=== PATIENT | male | born 1995 | race Caucasian/White ===

== ENCOUNTER 2019-12-30 13:22 | Emergency (ER) | payer SELFPAY ==
[2019-12-30 13:22] VITALS: BP 109/66; PULSE 90; RESP 16; TEMP 37.2; O2SAT 96
[2019-12-30 13:45] VITALS: BP 116/78; PULSE 86; RESP 16; TEMP 36.5; O2SAT 98; BMI 29.5
[2019-12-30 14:02] VITALS: BP 109/66; PULSE 89; RESP 16; TEMP 37.2; O2SAT 96
--- NOTE | 2019-12-30 14:02 | W.ED.GENADLT ---
HPI - General Adult General: Chief complaint: General Medical Stated complaint: COVID SYMPTOMS Time Seen by Provider: 12/30/19 13:51 History of Present Illness: HPI narrative: She has had sinus drainage for the last week or 2-works at [employer] missed work would like to have a note for work said he has had slight cough been taking [id number]-atmrqbn cold medicines denies any sore throat positive sputum production has had some diarrhea denies loss of taste or smell has not been exposed any COVID MD complaint: URI Onset (ago): day(s) Associated symptoms: Deny chest pain, dyspnea, headache(s), nausea, rash or vomiting Review of Systems Const: Denies: fever(s), chills or body aches Eyes: Denies: change in vision or blurry vision ENMT: Reports: nasal congestion; Denies: throat pain Card: Denies: chest pain or dyspnea on exertion Resp: Reports: non-productive cough; Denies: dyspnea or productive cough GI: Denies: abdominal pain, nausea or vomiting : Denies: difficulty urinating Musc: Denies: extremity pain Skin/Breast: Denies: rash Neuro: Denies: headache(s) Psych: Denies: anxiety or depression Thad/Lymph: Denies: easy bruising PFSH ED PFSH: Social History (Updated 12/30/19 @ 13:50 by Jason Zhou RN) Smoking and tobacco status: current every day smoker Alcohol intake: current Alcohol intake frequency: 3 or more drinks per day Alcohol type: beer Substance/Drug Use: current Substance/Drug use type: Marijuana Physical Exam Const: COMMON NORMALS: no acute distress, average body habitus and patient oriented x3 HENMT: COMMON NORMALS: normocephalic HEAD & SCALP: normal to inspection and normocephalic FACE & SINUS: sinus tenderness frontal NOSE: Nasal discharge present Eye: COMMON NORMALS: conjunctivae normal GENERAL EYE: appearance normal, both eyes and all related structures CONJUNCTIVA: Yes conjunctivae normal Neck/C-Spine: COMMON NORMALS: no JVD Chest: COMMONS NORMALS: normal inspection of the chest Resp: COMMON NORMALS: normal respiratory effort and clear to auscultation bilaterally AUSCULTATION: clear to auscultation bilaterally Cardio: COMMON NORMALS: no JVD, regular rate and regular rhythm RATE: regular rate RHYTHM: regular rhythm GI: COMMON NORMALS: Normal to inspection, nondistended, normoactive bowel sounds present Extremity: COMMON NORMALS: normal to inspection and full ROM Neuro: COMMON NORMALS: patient oriented x3 Course Vital Signs: Vital signs: Vital Signs Temperature 98.9 F 12/30/19 14:16 Pulse Rate 16 L 12/30/19 14:16 Respiratory Rate 16 12/30/19 14:02 Blood Pressure 106/68 12/30/19 14:16 Pulse Oximetry 96 12/30/19 14:16 Discharge Plan Discharge Patient Disposition: Home Clinical Impression: URI (upper respiratory infection) Qualifiers: URI type: unspecified URI Qualified Code(s): J06.9 - Acute upper respiratory infection, unspecified Condition: Stable Prescriptions: New Zithromax Z-Rob 250 mg tablet See Rx Instructions .ROUTE .COMPLEX Qty: 6 RF: 0 Discharge Orders: Discharge Order (Routine); Ordered 12/30/19 Ordered By: Isaiah Garcia Referrals: Lake Melendez MD [Family Provider] - Discharge Diet: Usual diet Discharge Activity: Increase activity as tolerated Patient Instructions: Upper Respiratory Infection (ED) Activity Restrictions/Additional Instructions: Follow-up with medical provider as directed. Take medications as prescribed. Return to the ER or your medical provider if condition worsens. Please read and understand discharge instructions. If any questions ask please. Stand Alone Forms: Work/School Release Discharge Date/Time: 12/30/19 14:17 Coding Level of Care Code ED Machine Heel Builder for Germán Fwaniyah Exam Comprehensive
[2019-12-30 14:16] VITALS: BP 106/68; PULSE 16; TEMP 37.2; O2SAT 96
== END 2019-12-30 14:17 | disposition home or self-care (01) ==
PROVIDERS: Emergency Provider Nurse Practitioner Family; Family Provider Family Medicine
DX: J06.9 Acute upper respiratory infection, unspecified (principal); F17.210 Nicotine dependence, cigarettes, uncomplicated
CPT/HCPCS: 12345; 99282

== ENCOUNTER 2021-03-06 13:38 | Emergency (ER) | payer SELFPAY ==
[2021-03-06 14:12] VITALS: BP 119/71; PULSE 97; RESP 16; TEMP 37.1; O2SAT 100; BMI 24.3
[2021-03-06 15:39] VITALS: BP 120/72; PULSE 87; RESP 16; O2SAT 98
[2021-03-06] MEDS: tetanus-dipt-pertussis 0.5 mL SDV IM (16:04)
--- NOTE | 2021-03-06 16:12 | ED_ITS ---
HPI - Extremity Problem General: Chief complaint: Extremity Injury, Lower Stated complaint: INFECTION IN FOOT Time Seen by Provider: 03/06/21 15:51 Source: patient Mode of arrival: ambulatory Limitations: no limitations History of Present Illness: HPI Narrative: 25-year-old male presents to the ER today for possible foreign body in the right heel. Patient reports on Thanksgiving he thinks he stepped on a piece of glass. He reports some swelling and tenderness in the foot where there is a small cut. Patient reports the pain is mostly when walking on the foot. His last tetanus shot is unknown. Denies any fever chills or redness. Onset (ago): day(s) Pain Consistency: intermittent Location: right and lower extremity Severity scale (1-10): 4 Associated symptoms: Deny chest pain or fever(s) Review of Systems General: Reports: 10 or more systems reviewed and unremarkable except in HPI and below Const: Denies: fever(s), chills or body aches ENMT: Denies: throat pain, nasal discharge or nasal congestion Card: Denies: chest pain or palpitations Resp: Denies: dyspnea, productive cough or wheezing GI: Denies: abdominal pain, nausea, vomiting, diarrhea or constipation Musc: Reports: extremity pain Skin/Breast: Reports: other (Foreign body in right heel) Neuro: Denies: headache(s) PFSH ED PFSH: Social History Smoking and tobacco status: current every day smoker Alcohol intake: current Alcohol intake frequency: 3 or more drinks per day Alcohol type: beer Physical Exam Const: COMMON NORMALS: no acute distress and average body habitus GENERAL APPEARANCE: cooperative and comfortable HENMT: COMMON NORMALS: normocephalic, external ears normal and Normal external nose present HEAD & SCALP: normocephalic NOSE: Normal external nose present EXTERNAL EAR: Yes external ears normal Neck/C-Spine: COMMON NORMALS: full ROM Resp: COMMON NORMALS: normal respiratory effort and No retractions EFFORT & INSPECTION: Yes able to speak in complete sentences Cardio: COMMON NORMALS: regular rate and regular rhythm RATE: regular rate RHYTHM: regular rhythm GI: COMMON NORMALS: Normal to inspection, nondistended, normoactive bowel sounds present and non-tender Extremity: COMMON NORMALS: full ROM OTHER: There is a small cut to the right heel noted on exam. There is minimal swelling surrounding it, no redness noted however this is an the heel. This is tender to palpation and with weightbearing. No drainage is noted. No obvious foreign body. Neuro: COMMON NORMALS: moves all extremities Psych: OTHER: At baseline Skin: COMMON NORMALS: no rashes or lesions noted NARRATIVE SKIN EXAM: See extremity exam. GENERAL SKIN EXAM: no rashes or lesions noted Course ED course: Patient presents to the ER today for possible foreign body in foot. This appears very mild and would not be something we would remove in the ER today. Discussed with patient treatment options. Vital Signs: Vital signs: Vital Signs Temperature 98.7 F 03/06/21 14:12 Pulse Rate 87 03/06/21 15:39 Respiratory Rate 16 03/06/21 15:39 Blood Pressure 120/72 03/06/21 15:39 Pulse Oximetry 98 03/06/21 15:39 Critical Care Time Critical Care Time: Critical Care Time: No MDM - Extremity (Nontraumatic) MDM Narrative: Medical decision making narrative: 25-year-old male with probable mental delay presents to the ER today for possible foreign body in the right heel. Patient reports he thinks he stepped on a piece of glass on . His tetanus status is not up-to-date, so this was given in ER today. On exam, there is a small cut on the heel with some swelling. No redness is noted, no drainage. This is tender to palpation and with weightbearing. Patient is wearing sandals at this time. Discussed treatment options with patient. I would recommend he follow-up with podiatry, a referral has been placed. Discussed that we typically do not go searching for foreign bodies in the ER. Imaging may be necessary but would not change treatment plan today. Patient verbalized understanding and is in agreement with seeing podiatr y in the near future. Recommended Epsom salt soaks and wearing good shoes and keeping the area clean. Return to the ER with any new or worsening symptoms. Discharge Plan Discharge Patient Disposition: Home Clinical Impression: Foreign body of right heel Condition: Stable Prescriptions: New cephalexin 500 mg capsule 500 mg PO Q12H 10 Days Qty: 20 RF: 0 No Action Zithromax Z-Rob 250 mg tablet See Rx Instructions .ROUTE .COMPLEX Qty: 6 RF: 0 Discharge Orders: Discharge ED (Routine); Ordered 03/06/21 Ordered By: Chantal Norwood Discharge Diet: Usual diet Discharge Activity: Resume usual activity Patient Instructions: Opioid Safety Activity Restrictions/Additional Instructions: Take antibiotics as prescribed. Warm Epsom salt soaks recommended. Follow-up with sustainability executive director as discussed. Return to the ER with any new or worsening symptoms. Coding Level of Care Code ED Nuclear Powerplant Supervisor for Germán López
--- NOTE | 2021-03-07 11:37 | DCPLANNER ---
field staff manager had message to schedule a follow up appointment for patient with ortho. field staff manager called the ortho clinic, spoke with Isis, gave clinic patients information. field staff manager was told that patients information would be printed and reviewed. Clinic will call patient with appointment information.
--- NOTE | 2021-03-08 11:23 | DCPLANNER ---
Patient has a follow up appointment scheduled for March at 3:[address] Zavala at [facility]. Clinic will call patient with appointment information.
--- NOTE | 2021-04-06 13:30 | DCPLANNER ---
Patient had a follow up appointment scheduled with ortho - patient did not attend appointment.
== END 2021-03-06 16:16 | disposition home or self-care (01) ==
PROVIDERS: Emergency Provider Physician Assistant
DX: S91.321A Laceration with foreign body, right foot, initial encounter (principal); W25.XXXA Contact with sharp glass, initial encounter; W45.8XXA Other foreign body or object entering through skin, initial encounter
CPT/HCPCS: 90471; 90715; 99283

== ENCOUNTER 2021-03-12 15:44 | Emergency (ER) | payer SELFPAY ==
[2021-03-12 16:08] VITALS: BP 115/75; PULSE 90; RESP 16; TEMP 37; O2SAT 98
--- NOTE | 2021-03-12 16:36 | ED_ITS ---
HPI - General Adult General: Chief complaint: Wound/Laceration Stated complaint: R FOOT ABSCESS: SEEN FOR SAME 03.06.21 Time Seen by Provider: 03/12/21 16:29 History of Present Illness: HPI narrative: CC: [R]-heel abscess HPI: [25]yo patient presenting to to the ED with R heel bscess growing sincec 03/03 after he stepped on a glass. Pateint was due to see Dr. Zavala earlier this week but missed his appointment has not started on ABx. Pain, redness, and induration has since become swollen, inflamed, indurated, and painful and patient presents for further evaluation. Reports that piece of glass has come out. Today, the patient denies fever/chill, nausea/vomiting, chest pain, SOB, palpitations, GI/ complaints. No hx of immunocompromised, DM, transplant, or asplenia. Onset: 10 days ago Duration: 10 days Location: R heel Severity: mild/moderate Review of Systems Narrative: Constitutional: No fever, no chills. HEENT: No vision changes CV: No chest pain, no palpitations PULM: No cough, no dyspnea. GI: No abdominal pain, no N/V/D. : No dysuria MSKEL: No muscle pain SKIN: +bump over the R heel measuring 4cm in diameter NEURO: No headache, no focal weakness. HEME: No visible bruises PSYCH: Normal mood PFSH ED PFSH: Social History Smoking and tobacco status: current every day smoker Alcohol intake: current Alcohol intake frequency: 3 or more drinks per day Alcohol type: beer Physical Exam Narrative: EXAM NARRATIVE: Head: Atraumatic Eyes: PERRL, conjunctiva without injection ENT: Mucous membrane moist NECK: Supple without lymphadenopathy LUNGS: LCTAB CV: RRR ABDOMEN: Soft, nontender EXTREMITY: Normal ROM SKIN: R heel indurated/fluctuant lesion NEURO: Awake and alert. No focal motor deficits. PSYCH: Normal mood and affect. Procedures Abscess I/D Site: foot Side (if applicable): right Local Anesthetic: lidocaine 1% and with bicarb Amount of anesthesia used (mL): 15 Amount of fluid expressed (mL): 30 Irrigation: Yes Packing used?: none Course Vital Signs: Vital signs: Vital Signs Temperature 98.6 F 03/12/21 16:08 Pulse Rate 90 03/12/21 16:08 Respiratory Rate 16 03/12/21 16:08 Blood Pressure 115/75 03/12/21 16:08 Pulse Oximetry 98 03/12/21 16:08 MDM - General Adult MDM Narrative: Medical decision making narrative: [25] yo patient presenting with exam most consistent with simple Abscess. No suspicion for overlying cellulitis. Given History, Exam, and Workup I have low suspicion for Cellulitis, Necrotizing Fasciitis, Pyomyositis, Sporotrichosis, Osteomyelitis or other emergent problems as a cause for this presentation. No suspicion for retained foreign objects. Interventions: Patient?s abscess has been incised with acceptable resolution. Please see the procedure note for information. Rx: Bactrim DS BID x 5 days Disposition: Discharge. Advised to follow up with a primary care physician in 48 hours. The patient given return precautions for any worsening symptoms, fever/nausea, vomiting or any new or concerning issues. Discharge Plan Discharge Patient Disposition: Home Clinical Impression: Abscess of foot Condition: Stable Prescriptions: New Bactrim DS 800-160 mg tablet 1 tab PO BID 5 Days Qty: 10 RF: 0 No Action Zithromax Z-Rob 250 mg tablet See Rx Instructions .ROUTE .COMPLEX Qty: 6 RF: 0 cephalexin 500 mg capsule 500 mg PO Q12H 10 Days Qty: 20 RF: 0 Discharge Orders: Discharge ED (Routine); Ordered 03/12/21 Ordered By: Kumar Conti Discharge Diet: Advance as tolerated Discharge Activity: Resume usual activity Patient Instructions: Abscess (ED) Activity Restrictions/Additional Instructions: Our correctional case manager will have you follow-up with Dr. Zavala in the next few days. You would be expected to have a phone call with our correctional case manager who will put you on the schedule. Coding Level of Care Code ED Rn Manager for Germán López
[2021-03-12] MEDS: sodium bicarbonate 8.4% 1 mEq/mL 50mL Syr 50 MEQ IVP (16:46)
--- NOTE | 2021-03-13 10:37 | DCPLANNER ---
manager terminal had message to schedule a follow up appointment for patient with ortho. manager terminal called the ortho clinic, spoke with Madeleine, gave clinic patients information. manager terminal was told that patients information would be printed and reviewed. Clinic will call patient with appointment information.
--- NOTE | 2021-03-16 07:50 | DCPLANNER ---
Patient has a follow up appointment scheduled for Saturday, March 20, 2021 at 11:[address] Zavala. Clinic will call patient with appointment information.
--- NOTE | 2021-03-31 11:55 | DCPLANNER ---
Patient had a follow up appointment scheduled with ortho - patient did not attend appointment.
== END 2021-03-12 17:24 | disposition home or self-care (01) ==
PROVIDERS: Emergency Provider Emergency Medicine
DX: L02.611 Cutaneous abscess of right foot (principal); F17.210 Nicotine dependence, cigarettes, uncomplicated
CPT/HCPCS: 10060; 96374; 99283

== ENCOUNTER 2022-12-23 19:56 | Emergency (ER) | payer MEDICAID, SELFPAY ==
[2022-12-23 20:03] VITALS: BP 121/80; PULSE 92; RESP 18; TEMP 37; O2SAT 96; BMI 21.2
--- NOTE | 2022-12-23 20:09 | ED_ITS ---
HPI - Male Genitourinary General: Chief complaint: Urogenital-Male Stated complaint: male genital pain Time Seen by Provider: 12/23/22 20:08 History of Present Illness: 27-year-old male patient comes in today for complaints of urinary discomfort. Patient endorses unprotected intercourse on Saturday. Patient reports pain and discomfort today. Patient states his partner had a yeast infection at the time of intercourse. Associated symptoms: Reports dysuria Review of Systems Const: Denies: fever(s) : Reports: dysuria PFSH ED PFSH: Social History Smoking and tobacco status: current every day smoker Alcohol intake: current Alcohol intake frequency: 3 or more drinks per day Alcohol type: beer Substance/Drug Use: current Physical Exam Const: COMMON NORMALS: alert HENMT: COMMON NORMALS: normocephalic HEAD & SCALP: normocephalic Neck/C-Spine: COMMON NORMALS: full ROM Resp: COMMON NORMALS: normal respiratory effort and clear to auscultation bilaterally AUSCULTATION: clear to auscultation bilaterally Cardio: COMMON NORMALS: regular rate and regular rhythm RATE: regular rate RHYTHM: regular rhythm GI: COMMON NORMALS: Normal to inspection, nondistended, normoactive bowel sounds present : COMMON NORMALS: Yes no CVA tenderness and Yes normal external exam BLADDER/KIDNEY EXAM: Yes no CVA tenderness Back/Pelvis: COMMON NORMALS: no CVA tenderness Extremity: COMMON NORMALS: full ROM Neuro: SENSORIUM/ORIENTATION: Yes alert Skin: COMMON NORMALS: turgor normal GENERAL SKIN EXAM: turgor normal Course Vital Signs: Vital signs: Vital Signs Temperature 98.6 F 12/23/22 20:03 Pulse Rate 68 12/23/22 21:27 Respiratory Rate 16 12/23/22 21:27 Blood Pressure 128/101 12/23/22 21:27 Pulse Oximetry 98 12/23/22 21:27 Oxygen Delivery Me thod Room Air 12/23/22 20:03 MDM - Male Medical Decision Making 27-year-old male patient with recent unprotected sexual intercourse was concerned of STI. Patient reported burning with urination. On exam patient appears nontoxic. External genitalia exam was normal. Differential diagnosis includes not limited to urethritis, STI, balanitis. Urinalysis had some red blood cells in it. We will go ahead and treat for STIs with ceftriaxone and doxycycline. Patient was also given 1 Diflucan due to reported partner having yeast. Patient was encouraged drink plenty of water and fluids and follow-up with primary care. Patient reported understanding. Lab Data Laboratory Results Urine Color Yellow (Yellow) 12/23/22 21:00 Urine Appearance Clear (CLEAR) 12/23/22 21:00 Urine pH 5 (5-7) 12/23/22 21:00 Ur Specific [place] 1.020 (1.005-1.030) 12/23/22 21:00 Urine Protein Neg (Negative) 12/23/22 21:00 Urine Glucose (UA) Norm (Normal) 12/23/22 21:00 Urine Ketones Negative (Negative) 12/23/22 21:00 Urine Blood 3+ (Negative) H 12/23/22 21:00 Urine Nitrate Negative (Negative) 12/23/22 21:00 Urine Bilirubin Neg (Negative) 12/23/22 21:00 Urine Urobilinogen 1 mg/dL (Negative) H 12/23/22 21:00 Ur Leukocyte Esterase Negative (Negative) 12/23/22 21:00 Urine RBC 10-15 /hpf (0-2) H 12/23/22 21:00 Urine WBC Rare /hpf (0-5) 12/23/22 21:00 Ur Squamous Epith Cells Rare /hpf (0-5) 12/23/22 21:00 Amorphous Sediment Not Reportable 12/23/22 21:00 Urine Bacteria None /hpf (NONE) 12/23/22 21:00 No radiology studies performed this visit Discharge Plan Discharge Patient Disposition: Home Clinical Impression: Urethritis Condition: Stable Prescriptions: New doxycycline hyclate 100 mg capsule 100 mg PO BID 7 Days Qty: 14 0RF No Action Zithromax Z-Rob 250 mg tablet See Rx Instructions .ROUTE .COMPLEX Qty: 6 0RF Rx Instructions: take 500 mg today (day 1), then 250 mg for 4 days (days 2-5) Discharge Orders: Discharge ED (Routine); Ordered 12/23/22 Ordered By: Moses Smith Discharge Diet: Usual diet Discharge Activity: Increase activity as tolerated Patient Instructions: Male Condom Use (ED), Sexually Transmitted Diseases in Adolescents (ED) Activity Restrictions/Additional Instructions: Use a condom to protect against sexually transmitted illnesses. Drink plenty of water and fluids. Take antibiotic as directed for the next 7 days. Follow-up with primary care for further instruction. Return to ED for new concerns. Coding Level of Care Code ED Associate Vice President for Germán López
[2022-12-23 21:26] LABS: Add Urine Microscopic? YES; Bilirubin Urine Neg (Negative); Blood Urine 3+ (Negative); Glucose Urine UA Norm (Normal); Ketones Urine Negative (Negative); Leukocyte Esterase Urine Negative (Negative); Nitrate Urine Negative (Negative); Protein Urine Neg (Negative); Urine Appearance Clear (CLEAR); Urine Color Yellow (Yellow); Urobilinogen Urine 1 mg/dL (Negative); pH Urine 5 (5-7)
[2022-12-23 21:27] VITALS: BP 128/101; PULSE 68; RESP 16; O2SAT 98
[2022-12-23 21:34] LABS: Add Urine Culture? Yes; Squamous Epithelial Cell Urine RARE /hpf (0-5); WBC Urine RARE /hpf (0-5)
[2022-12-23] MEDS: cefTRIAXone 500 MG in water for injection-sterile 1 ML IM (22:00)
[2022-12-23] MEDS: fluconazole 100 mg Tablet 150 MG PO (22:01)
[2022-12-23] MEDS: doxycycline 100 mg Tablet PO (22:01)
[2022-12-25 16:49] LABS: Chlamydia Trachomatis RNA TMA NOT DETECTED (NOT DETECTED); Neisseria Gonorrhoeae RNA, TMA NOT DETECTED (NOT DETECTED)
== END 2022-12-23 22:10 | disposition home or self-care (01) ==
PROVIDERS: Emergency Provider Nurse Practitioner Family
DX: N34.2 Other urethritis (principal); F17.210 Nicotine dependence, cigarettes, uncomplicated
CPT/HCPCS: 81001; 87086; 87491; 87591; 96372; 99284; J0696

== ENCOUNTER 2023-06-25 20:47 | Emergency (ER) | payer MEDICAID, SELFPAY ==
[2023-06-25 20:57] VITALS: BP 124/83; PULSE 91; RESP 15; TEMP 36.6; O2SAT 99
--- NOTE | 2023-06-25 21:44 | W.ED.DENTAL ---
Documented by User: ANICETO Richardson 06/25/23 21:53 HPI - Dental/Oral General: Chief complaint: Dental/Oral Stated complaint: tooth pain Time Seen by Provider: 06/25/23 21:15 Source: patient Mode of arrival: EMS Limitations: no limitations History of Present Illness: Patient is a 27-year-old male who presents to the emergency department via EMS complaining of dental pain onset today. Patient states he recently had 3 teeth pulled within the last week, had no issues until today when he noticed pain to his right upper teeth. He states that he is having some facial pain that sometimes extends up towards the ear, but denies any fevers or other symptoms. He has not tried anything for his pain to this point. MD Complaint: tooth pain Onset (ago): hour(s) Duration: constant Associated symptoms: Reports ear or mastoid pain; Denies fever(s) or odynophagia Review of Systems General: Reports: 10 or more systems reviewed and unremarkable except in HPI and below Const: Denies: fever(s), chills or fatigue Eyes: Denies: change in vision ENMT: Reports: dental pain, ear or mastoid pain and sinus pain; Denies: throat pain, odynophagia, ear discharge, nasal discharge, nasal congestion or nasal obstruction Card: Denies: chest pain, palpitations or lightheadedness Resp: Denies: dyspnea or productive cough GI: Denies: abdominal pain, nausea, vomiting or diarrhea Skin/Breast: Denies: rash Neuro: Denies: headache(s) or dizziness PFS ED PFSH: Social History Smoking and tobacco/nicotine status: current every day tobacco/nicotine user Alcohol intake: current Alcohol intake frequency: 3 or more drinks per day Alcohol type: beer Substance/Drug Use: current Physical Exam Const: COMMON NORMALS: no acute distress, average body habitus, patient oriented x3, no limitations, healthy appearing and alert GENERAL APPEARANCE: cooperative and comfortable ORIENTATION/CONSCIOUSNESS: Yes awake HENMT: COMMON NORMALS: normocephalic, atraumatic, external ears normal, EAC's normal, TM's normal bilaterally, Normal external nose present and Normal nasal mucous membranes and turbinates present HEAD & SCALP: normocephalic and atraumatic FACE & SINUS: normal facial exam and Facial tenderness on exam of face and sinuses on the right maxilla NOSE: Normal external nose present, Normal nares present, No nasal polyps present and Normal nasal mucous membranes and turbinates present EXTERNAL EAR: Yes external ears normal EXTERNAL AUDITORY CANAL: EAC's normal TYMPANIC MEMBRANE: TM's normal bilaterally MOUTH: Normal oral and palatal mucosa present, lip normal and tongue normal TEETH & GINGIVA: Yes caries, Yes multiple restorations and Yes poor dentition THROAT: posterior oropharynx normal OTHER: Right upper gingiva is erythematous and edematous with no active drainage of purulent or bloody material Eye: COMMON NORMALS: EOMs intact bilaterally and conjunctivae normal CONJUNCTIVA: Yes conjunctivae normal Neck/C-Spine: COMMON NORMALS: full ROM, no lymphadenopathy and supple Resp: COMMON NORMALS: normal respiratory effort, No retractions, No use of accessory muscles and clear to auscultation bilaterally AUSCULTATION: clear to auscultation bilaterally Cardio: COMMON NORMALS: regular rate, regular rhythm, S1 normal heart sound present and S2 normal heart sound present RATE: regular rate RHYTHM: regular rhythm HEART SOUNDS: S1 normal heart sound present and S2 normal heart sound present Extremity: COMMON NORMALS: normal to inspection and full ROM Neuro: COMMON NORMALS: patient oriented x3, moves all extremities, no focal motor deficits and no sensory deficits noted SENSORIUM/ORIENTATION: Yes alert Psych: COMMON NORMALS: mental status grossly normal Skin: COMMON NORMALS: no rashes or lesions noted and no wounds GENERAL SKIN EXAM: no rashes or lesions noted Course Vital Signs: Vital signs: Vital Signs Temperature 97.9 F 06/25/23 20:57 Pulse Rate 87 06/25/23 22:27 Respiratory Rate 16 06/25/23 22:27 Blood Pressure 120/74 06/25/23 22:27 Pulse Oximetry 97 06/25/23 22:27 Oxygen Delivery Me thod Room Air 06/25/23 20:57 MDM - Dental/Oral Medical Decision Making Patient seen and evaluated in the emergency department today due to dental pain. Patient has history of poor dentition and multiple caries, and recently had 3 teeth pulled to the left upper region. Vitals normal on arrival. Examination showed evidence of suspected dental abscess to the right upper teeth. Will give him a dose of Augmentin prior to discharge and send prescription to his pharmacy. Also instructed him to follow-up with his dentist this week. Return precautions given. Patient agrees with plan. No radiology studies performed this visit Discharge Plan Discharge Patient Disposition: Home Clinical Impression: Dental abscess Condition: Stable Prescriptions: New amoxicillin-pot clavulanate 875-125 mg tablet 1 tab PO BID 10 Days Qty: 20 0RF No Action Zithromax Z-Rob 250 mg tablet See Rx Instructions .ROUTE .COMPLEX Qty: 6 0RF Rx Instructions: take 500 mg today (day 1), then 250 mg for 4 days (days 2-5) Discharge Orders: Discharge ED (Routine); Ordered 06/25/23 Ordered By: Wiliam Palomino Discharge Diet: Usual diet Discharge Activity: Increase activity as tolerated Patient Instructions: Dental Abscess (ED) Activity Restrictions/Additional Instructions: Augmentin as prescribed. Plenty of fluids. Follow-up with your dentist as instructed. Return with any new or worsening symptoms. 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 Fwd Documented by User: John Yeh DO 06/26/23 06:02 HPI - Dental/Oral General: Chief complaint: Dental/Oral Stated complaint: tooth pain Time Seen by Provider: 06/25/23 21:15 [facility] ED PFSH: Social History Smoking and tobacco/nicotine status: current every day tobacco/nicotine user Alcohol intake: current Alcohol intake frequency: 3 or more drinks per day Alcohol type: beer Substance/Drug Use: current Course Vital Signs: Vital signs: Vital Signs Temperature 97.9 F 06/25/23 20:57 Pulse Rate 87 06/25/23 22:27 Respiratory Rate 16 06/25/23 22:27 Blood Pressure 120/74 06/25/23 22:27 Pulse Oximetry 97 06/25/23 22:27 Oxygen Delivery Me thod Room Air 06/25/23 20:57 MDM - Dental/Oral Medical Decision Making Patient seen and evaluated in the emergency department today due to dental pain. Patient has history of poor dentition and multiple caries, and recently had 3 teeth pulled to the left upper region. Vitals normal on arrival. Examination showed evidence of suspected dental abscess to the right upper teeth. Will give him a dose of Augmentin prior to discharge and send prescription to his pharmacy. Also instructed him to follow-up with his dentist this week. Return precautions given. Patient agrees with plan. Chart reviewed Discharge Plan Discharge Patient Disposition: Home Clinical Impression: Dental abscess Condition: Stable Prescriptions: New amoxicillin-pot clavulanate 875-125 mg tablet 1 tab PO BID 10 Days Qty: 20 0RF No Action Zithromax Z-Rob 250 mg tablet See Rx Instructions .ROUTE .COMPLEX Qty: 6 0RF Rx Instructions: take 500 mg today (day 1), then 250 mg for 4 days (days 2-5) Discharge Orders: Discharge ED (Routine); Ordered 06/25/23 Ordered By: Wiliam Palomino Discharge Diet: Usual diet Discharge Activity: Increase activity as tolerated Patient Instructions: Dental Abscess (ED) Activity Restrictions/Additional Instructions: Augmentin as prescribed. Plenty of fluids. Follow-up with your dentist as instructed. Return with any new or worsening symptoms. 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
[2023-06-25] MEDS: amoxicillin-clav 875-125 mg Tablet 1 TAB PO (22:24)
[2023-06-25 22:27] VITALS: BP 120/74; PULSE 87; RESP 16; O2SAT 97
== END 2023-06-25 22:28 | disposition home or self-care (01) ==
PROVIDERS: Emergency Provider Physician Assistant
DX: K04.7 Periapical abscess without sinus (principal); Z72.0 Tobacco use
CPT/HCPCS: 99283

== ENCOUNTER 2024-05-05 02:16 | Emergency (ER) | payer MEDICAID, SELFPAY ==
[2024-05-05 02:17] VITALS: BP 135/86; PULSE 107; RESP 18; TEMP 36.8; O2SAT 97; BMI 21.2
[2024-05-05 02:21] VITALS: BP 135/86; PULSE 107; RESP 18; O2SAT 97
--- NOTE | 2024-05-05 02:27 | ED.C_ITS ---
HPI - Psych General: Chief Complaint: Psychiatric Symptoms Stated Complaint: mental health eval Time Seen by Provider: 05/05/24 02:20 History of Present Illness: Patient presents to the ER with complaints of being stressed out. Patient says dad moved in with him and is now is arguing with his girlfriend. He said they live in a 1 bedroom apartment. Patient denies any suicidal or homicidal ideation. Patient says she just overstressed and wants to go to the stress unit. Related Data Previous Rx's Medication Instructions Recorded azithromycin 250 mg tablet See Rx Instructions PO .COMPLEX #6 12/30/19 (Zithromax Z-Rob) tabs Allergies Allergy/AdvReac Type Severity Reaction Status Date / Time No Known Allergies Allergy Verified 05/05/24 02:21 Review of Systems General: Reports: 10 or more systems reviewed and unremarkable except in HPI and below PFSH ED PFSH: Social History Smoking and tobacco/nicotine status: current every day tobacco/nicotine user Alcohol intake: current Alcohol intake frequency: 3 or more drinks per day Alcohol type: beer Substance/Drug Use: current Physical Exam Const: COMMON NORMALS: no acute distress, average body habitus, patient oriented x3, no limitations, healthy appearing, alert and well nourished HENMT: COMMON NORMALS: normocephalic, atraumatic, hearing grossly normal bilaterally, external ears normal, Normal external nose present and moist oral mucous membranes HEAD & SCALP: normocephalic and atraumatic NOSE: Normal external nose present EXTERNAL EAR: Yes external ears normal Neck/C-Spine: COMMON NORMALS: no JVD Chest: COMMONS NORMALS: normal inspection of the chest and normal palpation of entire chest wall Resp: COMMON NORMALS: normal respiratory effort, No retractions, No use of accessory muscles and clear to auscultation bilaterally AUSCULTATION: clear to auscultation bilaterally Cardio: COMMON NORMALS: no JVD, regular rate, regular rhythm, S1 normal heart sound present, S2 normal heart sound present, No gallops present (Cardio), No clicks present (Cardio), No murmurs present (Cardio) and No rub (Cardio) RATE: regular rate RHYTHM: regular rhythm HEART SOUNDS: S1 normal heart sound present and S2 normal heart sound present GI: COMMON NORMALS: Normal to inspection, nondistended, normoactive bowel sounds present, Soft to palpation, non-tender, No hepatosplenomegaly present and no masses PALPATION: Yes Soft to palpation and Yes No hepatosplenomegaly present Neuro: COMMON NORMALS: patient oriented x3 SENSORIUM/ORIENTATION: Yes alert Course Vital Signs: Vital signs: Vital Signs Temperature 98.3 F 05/05/24 02:17 Pulse Rate 107 H 05/05/24 02:21 Respiratory Rate 18 05/05/24 02:21 Blood Pressure 135/86 05/05/24 02:21 Pulse Oximetry 97 05/05/24 02:21 Oxygen Delivery Me thod Room Air 05/05/24 02:17 MDM - Psych Medical Decision Making Patient denies suicidal or homicidal ideation. He says he just stressed out. Patient will be given information about the crisis unit and being instructed to follow back up with his PCP for further evaluation and treatment. Medical Records I reviewed the patient's medical records. Lab Data I reviewed the patient's lab results. No radiology studies performed this visit Discharge Plan Discharge Patient Disposition: Home Clinical Impression: Stress at home Condition: Stable Prescriptions: No Action Zithromax Z-Rob 250 mg tablet See Rx Instructions .ROUTE .COMPLEX Qty: 6 0RF Rx Instructions: take 500 mg today (day 1), then 250 mg for 4 days (days 2-5) Discharge Orders: Discharge ED (Routine); Ordered 05/05/24 Ordered By: Glen Odom Patient Instructions: Stress Activity Restrictions/Additional Instructions: Please follow-up with your PCP within next 7 days for further evaluation treatment. Please try to relax through with various modalities such as long hot baths, meditation, exercise, etc. 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
[2024-05-05 03:44] VITALS: BP 123/86; PULSE 98; O2SAT 97
== END 2024-05-05 03:47 | disposition home or self-care (01) ==
PROVIDERS: Emergency Provider Emergency Medicine
DX: Z73.3 Stress, not elsewhere classified (principal); Z72.0 Tobacco use
CPT/HCPCS: 99283